=== PATIENT | female | born 1955 | race Two or more races ===

== ENCOUNTER 2023-06-25 09:10 | Outpatient (AMB) | payer MEDICARE, SELFPAY ==
--- NOTE | 2023-06-25 10:41 | AM.OFFWIN_ITS ---
Intake Vital Signs 06/25/23 10:47 Weight 86.183 kg BP 130/78 Blood Pressure Location Lt brachial Position Sitting Pulse 92 Pulse Source Pulse Oximeter Temp 98.8 F Temp Source Temporal Artery Scan Pulse Oximetry (%) 97 Oxygen Delivery Method Room Air Intake Visit Reasons: EP, head congestion, body ache [phone] Intake Note: Patient here for possible covid she was recently on a cruise and came back with sx and also tested twice at home which came back positive. Patient Tobacco Use Status: Never used Tobacco Allergies No Known Allergies Allergy (Verified 06/25/23 10:42) Do you need a note to return to daycare/school/sports/work: No HPI HPI Comments History of Present Illness Details 1055 68-year-old female presents fatigue, mal aise, myalgias, rhinorrhea, recently returned from a cruise on friday, reports she tested positive for COVID at home ( friday) , has been symptomatic since friday sore thorat, fatiigue, malise, myalgias, also has multiple sick contacts at home which are positive for COVID- 19. Patient denies chest pain, shortness of breath, nausea, vomiting, abdominal pain, headache, vision changes, dizziness, weakness. Physical exam benign History and physical exam concerning for viral illness but most likely COVID-19. Unlikely PE, pneumonia, ACS. No signs of acute respiratory distress. Plan will discharge home with supportive measures. Reviewed CDC guidelines. Educated patient on diagnosis and treatment plan, answered all question, patient verbalizes understanding. At this time patient will be discharged home, advised to return with new or worsening symptoms. Educated on worrisome signs and symptoms and when to return. At this time I feel comfortable discharge home. I did discuss Paxlovid with this patient, she is on day 4 of symptoms, explained her she can think about it and go to the pharmacy for it or ask her PCP about it. [facility] Social History Patient Tobacco Use Status: Never used Tobacco Review of Systems Const Details: Constitutional : No Weight loss, No Fever, No Chills, + Fatigue, + Malaise ENT/Mouth : No sore throat, No Rhinorrhea Eyes: No Eye Pain, No Swelling, No Redness Cardiovascular : No Chest Pain, No SOB, No Dyspnea on Exertion, No Orthopnea, No Edema, No Palpitations Respiratory : No Cough, No Sputum, No Wheezing Gastrointestinal : No Nausea, No Vomiting, No Diarrhea, No Constipation, No abdominal Pain, No Hematochezia, No Melena Genitourinary : No Dysuria, No Urinary Frequency, No Hematuria, Musculoskeletal : No joint pain, + Myalgias, No Joint Swelling Skin : No Skin Lesions, No rash Neuro : No Weakness, No Numbness, No Dizziness, No Headache Psych : No Anxiety/Panic, No Depression All other systems reviewed and are negative All systems reviewed & are unremarkable except as noted in HPI and below Physical Exam Vital Signs: Last Vital Signs Temp 98.8 F 06/25/23 10:47 Pulse 92 06/25/23 10:47 BP 130/78 06/25/23 10:47 Pulse Ox 97 06/25/23 10:47 Oxygen Delivery Method Room Air 06/25/23 10:47 vss Appearance: Alert.? Oriented X3.? No acute distress.? Head: Normocephalic, atraumatic, no step-offs or deformities Eyes: Pupils equal, round and reactive to light.? Neck: Normal inspection.? Neck supple.? CVS: Normal heart rate and rhythm.? Pulses normal.? Respiratory: No respiratory distress.? Breath sounds normal.? Abdomen: Soft and nontender.? Skin: Skin warm and dry.? Normal skin color.? Normal skin turgor.? Extremities: No lower extremity edema.? No calf ttp. 5/5 strength to bilateral upper and lower extremities Neuro: Oriented X 3.? No motor deficit.? No sensory deficit. CN 2-12 intact Assessment & Plan Assessment & Plan (1) COVID-19: Code(s): U07.1 - COVID-19 Plan Take your medications as prescribed. If you were prescribed antibiotics today, it is important that you take your medication to their entirety, do not skip any doses, do not finish them early. Today you tested positive for COVID-19. Take Ibuprofen or Tylenol as needed for fevers or body aches. Quarantine for 5 days and ensure you wear a mask. After 5 days you should wear a mask for 5 days after that. Practice social distancing and good hand hygiene. Drink plenty of fluids. Follow-up with your primary care provider this week. Return to the emergency department with new or worsening symptoms. In case of emergency call 911 You can purchase a pulse oximeter from your local pharmacy or grocery store, and monitor your oxygen saturation if it goes below 94% you should return to the emergency department for further evaluation. Orders: Orders BinaxNOW Covid-19 Ag Today B34.9 - Viral infection, unspecified Coding Level of Care Code Est Pt Level 3 (72055) Diagnoses COVID-19 U07.1
[2023-06-25 10:47] VITALS: BP 130/78; PULSE 92; TEMP 37.1; O2SAT 97
== END 2023-06-25 11:21 | disposition home or self-care (01) ==
PROVIDERS: Visit Provider Physician Assistant
DX: U07.1 COVID-19 (principal)
CPT/HCPCS: 99213

== ENCOUNTER 2025-08-11 13:47 | Outpatient (AMB) | payer MEDICARE, SELFPAY ==
--- NOTE | 2025-08-11 13:51 | MHC.PC.OV ---
Vital Signs 08/11/25 14:03 08/11/25 15:41 Height 5 ft 4.17 in Weight 196 lb BMI 33.5 BP 152/65 H 143/64 H Blood Pressure Location Rt brachial Position Sitting Respiration 12 Pulse 80 Pulse Source Pulse Oximeter Temp 98.1 F Temp Source Temporal Artery Scan Pulse Oximetry (%) 98 Oxygen Delivery Method Room Air Intake Visit Reasons: Establish Care/ Dr. Sinha Customer Service Assistant Required: No Accompanied by: Self / Same As Patient Allergies No Known Allergies Allergy (Verified 08/11/25 14:25) Medication List - Last Reconciled 08/11/25 by Patsy Babb PA-C cholecalciferol (vitamin D3) 50 mcg PO DAILY multivitamin 1 tab PO DAILY sb-tku-RJ-vit H-flsttw-mpikzhk 200 mcg-15 mcg- 5 mg-1 mg (PreserVision AREDS 2 Plus Multivit) caps PO Tobacco use date assessed: 08/11/25 Fall risk assessment: No Falls in past year Last assessed Fall Risk: 08/11/25 Dental Screening Dental Screen Date: 08/11/25 Did you have a dental visit in the last 12 months?: Yes Did you have a dental problem in the last 6 months where you did not have access to dental care?: No Was dental information given to patient?: Patient has dentist HPI HPI Comments History of Present Illness Details History of Present Illness The patient is a 70-year-old individual presenting for a new patient visit and physical. The patient has not seen a provider since 2020 and is concerned about monitoring blood pressure and cholesterol levels. The patient's medical history is significant for hyperlipidemia, hypothyroidism, osteopenia, and vitamin D deficiency. The patient reports a history of bilateral cataract surgery and takes PreserVision for eye health. Currently, the patient takes a multivitamin and vitamin D3 supplements. There is no family history of colon or breast cancer. Regarding health screenings, the patient's last colonoscopy was in 2011, and the last DEXA scan was in 2019. A mammogram was completed recently. The patient's 10 years ago, and a more recent partner in April of this year from stage 4 cancer. Social History - Tobacco Use: The patient denies ever smoking. - Functional Status: The patient is independent with all activities of daily living, drives, and does not use an assistive device such as a cane or walker. - Social Support: The patient's 10 years ago and a recent partner in April. - Family: The patient has three daughters and grandchildren. - Recent Falls: The patient denies any falls in the past year. [facility] Medical History (Updated 08/11/25 @ 15:40 by Patsy Babb PA-C) Healthcare maintenance Stage 1 hypertension Annual physical exam Heart murmur History of mammogram (~04/05/25) History of ectopic (~1984) Surgical History History of tonsillectomy and adenoidectomy (~1962) History of colonoscopy (~02/13/12) Family History Father Heart attack Mother Lung cancer Smoker Social History Housing: House Alcohol intake: current Alcohol intake frequency: holidays/special occasions only Patient Tobacco Use Status: Never used Tobacco service: No Current occupational status: retired Cognitive needs: No Hearing needs: No Vision needs: Yes (reading glasses) Questionnaire PHQ-9 Over the last 2 weeks, how often have you been bothered by any of the following problems? 1. Little interest or pleasure in doing things: not at all 2. Feeling down, depressed, or hopeless: not at all 3. Trouble falling or staying asleep, or sleeping too much: not at all 4. Feeling tired or having little energy: not at all 5. Poor appetite or overeating: not at all 6. Feeling bad about yourself - or that you are a failure or have let yourself or your family down: not at all 7. Trouble concentrating on things, such as reading the newspaper or watching television: not at all 8. Moving or speaking so slowly that other people could have noticed. Or the opposite - being so fidgety or restless that you have been moving around a lot more than usual: not at all 9. Thoughts that you would be better off or of hurting yourself in some way: not at all Total score: 0 Depression Screening Interpretation: Negative Depression Screening Done: Yes 53973 - PHQ-9 Billing: Yes Source: Developed by Drs. Ismael Cartwright, Sumi White, Baltazar Irizarry and colleagues, with an educational viraj from [employer]. Thrive Questionnaire Date Thrive assessed: 08/11/25 I am a: Patient What is your living situation today?: I have a steady place to live Within the past 12 months, did the food you bought not last and you didn't have the money to get more?: Never true Within the past 12 months, did you worry whether your food would run out before you got money to buy more?: Never true Do you have trouble paying for medicines?: No Do you have trouble getting transportation to medical appointments?: No Do you have trouble paying your heating and electricity bill?: No Do you have trouble taking care of your child, family member or friend?: No Do you have trouble with day-to-day activities such as bathing, preparing meals, shopping, managing finances, etc.?: No Are you currently unemployed and looking for a job?: No Are you interested in more education?: No Please select the resources that you would like help with: None THRIVE Score: 0 AUDIT C Alcohol Use Questionnaire (AUDIT-C) 1. How often do you have a drink containing alcohol?: Monthly or less 2. How many drinks containing alcohol do you have on a typical day when you are drinking?: 1 or 2 3. How often do you have six or more drinks on one occasion?: Never Total Score: 1 Score Reviewed/Action Taken: No ARETHA-7 AMB Questionnaire ARETHA-7 Date ARETHA - 7 assessed: 08/11/25 Feeling nervous, anxious, or on edge: 0 = Not at all Not being able to stop or control worryin = Not at all Worrying too much about different things: 0 = Not at all Trouble relaxin = Not at all Being so restless that it is hard to sit still: 0 = Not at all Becoming easily annoyed or irritable: 0 = Not at all Feeling afraid as if something awful might happen: 0 = Not at all Total ARETHA-7 score (0-4 normal; 5-9 mild; 10-14 moderate; 15-21 severe): 0 Source: Developed by Sumi Finley Kurt Kroenke and colleagues, with an educational viraj from [employer]. ARETHA-7 Assessment Billing ARETHA-7 Assessment Tool: ARETHA-7 Assessment 09824 Review of Systems Narrative Review of Systems - Constitutional: Denies recent falls. - Eyes: Denies any trouble seeing following cataract surgery. - Ears: Denies any trouble hearing. - Cardiovascular: Denies chest pain or shortness of breath. - Musculoskeletal: No pain reported on palpation during the abdominal exam. Const All systems reviewed & are unremarkable except as noted in HPI and below Physical exam (Primary Care) Vital Signs: Last Vital Signs Temp 98.1 F 08/11/25 14:03 Pulse 80 08/11/25 14:03 Resp 12 08/11/25 14:03 BP 152/65 H 08/11/25 14:03 Pulse Ox 98 08/11/25 14:03 Oxygen Delivery Method Room Air 08/11/25 14:03 Care Plan Goal for BP management: <140/90 patient will go home improve diet and exercise and return with blood pressure diary in 2 weeks BMI result Body Mass Index 33.5 BMI Assessment/Plan discussion: High BMI High, discussed plan: lifestyle, weight reduction, dietary, physical activity, alcohol moderation and other Tobacco/Smoking Status: Tobacco use Status Tobacco use date assessed 08/11/25 08/11/25 13:55 Patient Tobacco Use Status Never used Tobacco 08/11/25 14:14 PHQ-9: PHQ-9 Score PHQ-9: Total score 0 08/11/25 14:26 Depression Screening Interpretation: Negative Thrive Assessment: Date of Thrive Assessment Date Thrive assessed 08/11/25 08/11/25 13:55 Narrative Physical Exam Appearance: Alert. Oriented X3. No acute distress. Head: Normal external exam. Normocephalic. Atraumatic. Eyes: Pupils are equal, round, and reactive to light. Extraocular movements intact. Conjunctiva and sclera normal. Eyelids normal. Ears: External auditory canal normal. Tympanic membranes normal. Throat: Pharynx normal. Uvula midline. Moist mucous membranes. Neck: Normal inspection. Neck supple. Full range of motion. No adenopathy. Thyroid Normal. No meningeal signs. No neck mass noted. Cardiovascular: Normal heart rate and rhythm. Heart sound normal. Very light murmur noted. Pulses normal throughout. Respiratory: No respiratory distress. Painless inspiration. Breath sounds normal. No wheezes/rales/rhonchi noted. Chest nontender. No accessory muscle usage noted or decreased air movement noted. Abdomen: Soft and nontender. Bowel sounds normal in all 4 quadrants. No distention noted. No organomegaly noted. No visible injury noted. Back: No costovertebral angle tenderness. Full range of motion noted. Skin: Skin warm and dry. Normal skin color. Normal skin turgor. No rashes/lesions/lacerations noted. Extremities: No lower extremity edema. Extremities exhibit normal range of motion. Extremities nontender. Neuro: Oriented X 3. No motor deficit. No sensory deficit. Reflexes normal. Office Procedures Flu Questionnaire Does the patient have a severe egg allergy?: No Does the patient have severe life threatening allergies?: No Does the patient have a fever or illness today?: No Has the patient ever had Guillain-[place] Syndrome?: No Has the patient ever had any past reaction to a flu shot?: No Immunizations Fluarix [id number] (PF) 45 mcg (15 mcg x 3)/0.5 mL IM syringe Performing Provider: Patsy Babb PA-C Performing Location: [facility] [place] [facility] Documented (not given) by: MADINA Armendariz on 08/11/25 14:15 Reason Not Given: Patient Refused Results Reviewed Results Reviewed: Results - Colonoscopy: Last performed in 2011. - Mammogram: Recently performed. - DEXA scan: Last performed in 2019. Coding Level of Care Code New Pt Level 4 (21864) New Pt Prev Care >65yr (99782) Diagnoses Annual physical exam Z00.00 Stage 1 hypertension I10 Heart murmur R01.1 Healthcare maintenance Z00.00 Additional Codes ARETHA-7 Assessment Billing - ARETHA-7 Assessment Tool: ARETHA-7 Assessment 62055 ([id number]) PHQ-9 - 37173 - PHQ-9 Billing: Yes ([id number]) Time Spent (min) 60 Assessment & Plan Assessment & Plan (1) Annual physical exam: Code(s): Z00.00 - Encounter for general adult medical examination without abnormal findings Category: Medical (2) Stage 1 hypertension: Code(s): I10 - Essential (primary) hypertension Category: Medical Plan: The patient's blood pressure was 143/64 mmHg, which is consistent with stage 1 hypertension. The patient will monitor blood pressure at home once daily and record the readings for two weeks. The patient was counseled on improving diet and exercise to help lower blood pressure naturally before considering medication. A follow-up appointment is scheduled in two weeks to review the blood pressure log and determine if medication is necessary. (3) Heart murmur: Code(s): R01.1 - Cardiac murmur, unspecified Category: Medical Plan: A very light heart murmur was auscultated during the examination, which may be related to the patient's elevated blood pressure. An echocardiogram has been ordered to evaluate the heart valves for any regurgitation. If the echocardiogram shows significant findings, a referral to a trip rider will be made; otherwise, the plan is to manage blood pressure and monitor with annual ultrasounds. (4) Healthcare maintenance: Code(s): Z00.00 - Encounter for general adult medical examination without abnormal findings Category: Medical Plan: Comprehensive blood work has been ordered, including a CBC, CMP, ESR, CRP, lipid panel, thyroid function tests, vitamin B12, vitamin D, magnesium, and a urinalysis. A referral will be placed for a colonoscopy at [facility], as the last one was over 10 years ago. A referral for a DEXA scan will be placed for [place] to screen for osteoporosis, as the last scan was in 2019. Plan Plan Patient was informed and verbally consented to the use of an ambient scribe for clinic note documentation during this visit. 1. Stage 1 Hypertension The patient's blood pressure was 143/64 mmHg, which is consistent with stage 1 hypertension. The patient will monitor blood pressure at home once daily and record the readings for two weeks. The patient was counseled on improving diet and exercise to help lower blood pressure naturally before considering medication. A follow-up appointment is scheduled in two weeks to review the blood pressure log and determine if medication is necessary. 2. Heart Murmur A very light heart murmur was auscultated during the examination, which may be related to the patient's elevated blood pressure. An echocardiogram has been ordered to evaluate the heart valves for any regurgitation. If the echocardiogram shows significant findings, a referral to a trip rider will be made; otherwise, the plan is to manage blood pressure and monitor with annual ultrasounds. 3. Health Maintenance Comprehensive blood work has been ordered, including a CBC, CMP, ESR, CRP, lipid panel, thyroid function tests, vitamin B12, vitamin D, magnesium, and a urinalysis. A referral will be placed for a colonoscopy at [facility], as the last one was over 10 years ago. A referral for a DEXA scan will be placed for [place] to screen for osteoporosis, as the last scan was in 2019. Discussion Notes I discussed the patient's blood pressure reading of 143/64 mmHg, classifying it as stage 1 hypertension. I explained that instead of immediately starting medication, I would prefer for the patient to monitor blood pressure at home for two weeks, along with implementing diet and exercise changes. We will reassess the need for medication at a two-week follow-up. I informed the patient that I detected a very light heart murmur, which could be from a valve allowing a small amount of blood backflow and might be contributing to the elevated blood pressure. To investigate this, I have ordered an echocardiogram. I explained that if the results are significant, a cardiology referral will be made, but if it is minor, we will manage blood pressure and monitor with yearly ultrasounds. I reviewed the plan for health maintenance screenings, including a referral for a colonoscopy, as the patient is overdue, and a referral for a DEXA scan. I also ordered a comprehensive set of fasting labs. I explained that the respective facilities will contact the patient to schedule these appointments. Orders: Orders Influenza [id number] Immunization Today Z23 - Encounter for immunization Magnesium Today Z00.00 - Encounter for general adult medical examination without abnormal findings Vitamin B12 and Folate Today Z00.00 - Encounter for general adult medical examination without abnormal findings Vitamin D 25-OH Total Today Z00.00 - Encounter for general adult medical examination without abnormal findings UA CC w/rflx Micro + Cult Today Z00.00 - Encounter for general adult medical examination without abnormal findings Lipid Panel Today Z00.00 - Encounter for general adult medical examination without abnormal findings Hemoglobin A1c Today Z00.00 - Encounter for general adult medical examination without abnormal findings C Reactive Protein Today Z00.00 - Encounter for general adult medical examination without abnormal findings Comprehensive [place]. Panel Fast Today Z00.00 - Encounter for general adult medical examination without abnormal findings Complete Blood Count Auto Diff Today Z00.00 - Encounter for general adult medical examination without abnormal findings Erythrocyte Sedimentation Rate Today Z00.00 - Encounter for general adult medical examination without abnormal findings TSH reflex Free T4 Today Z00.00 - Encounter for general adult medical examination without abnormal findings XR DEXA axial skeleton Today M81.0 - Age-related osteoporosis without current pathological fracture CA echo transthoracic complete Today R01.1 - Cardiac murmur, unspecified Referrals Gastroenterology Referral Z12.11 - Encounter for screening for malignant neoplasm of colon Medications: New hz-aap-LS-vit T-dbuics-ygmuxft 200 mcg-15 mcg- 5 mg-1 mg (PreserVision AREDS 2 Plus Multivit) caps PO cholecalciferol (vitamin D3) 50 mcg PO DAILY multivitamin 1 tab PO DAILY Patient Instructions: Patient Instructions - Check your blood pressure once a day and write down the date, time, and reading for the next two weeks. - When checking your blood pressure, sit with your legs uncrossed on the ground, your arm at heart level, and do not talk during the reading. - Try to improve your diet and exercise to help lower your blood pressure naturally. - Go to a lab to have your blood drawn. - You must fast (nothing to eat or drink except water or black coffee) for at least 10 hours before your blood test. - The hospital or specialist's office will call you to schedule your heart ultrasound, colonoscopy, and bone density scan (DEXA). - You have a follow-up appointment in two weeks to review your blood pressure log.
[2025-08-11 14:03] VITALS: BP 152/65; PULSE 80; RESP 12; TEMP 36.7; O2SAT 98; BMI 33.5
[2025-08-11 15:41] VITALS: BP 143/64
== END 2025-08-11 14:44 | disposition home or self-care (01) ==
LOC: HO.HMCSH 13:48
PROVIDERS: PCP Physician Assistant Medical; Visit Provider Physician Assistant Medical
DX: I10 Essential (primary) hypertension (principal); R01.1 Cardiac murmur, unspecified; Z23 Encounter for immunization

== ENCOUNTER → 2025-08-11 13:47 | Outpatient (BNVA) | payer MEDICARE, SELFPAY | PROVIDERS: PCP Physician Assistant Medical; Visit Provider Physician Assistant Medical | DX: Z00.00 Encounter for general adult medical examination without abnormal findings (principal); I10 Essential (primary) hypertension; R01.1 Cardiac murmur, unspecified; Z13.31 Encounter for screening for depression; Z13.39 Encounter for screening examination for other mental health and behavioral disorders | CPT/HCPCS: 96127; 99202 ==

== ENCOUNTER 2025-08-23 07:38 | Outpatient (REF) | payer MEDICARE, SELFPAY ==
[2025-08-23 10:05] LABS: MANUAL DIFF FLAG NO
[2025-08-23 10:11] LABS: Appearance Urine Turbid; Glucose Urine UA Negative (Negative); PH 5.0 (5.0-9.0); Specific Gravity - Urine 1.025 (1.005-1.025); UMIC TRIGGER UACC YES
[2025-08-23 10:16] LABS: UACC Culture Trigger YES
[2025-08-23 10:23] LABS: Hematocrit 42.4 % (37.0-47.0); Hemoglobin 13.9 g/dl (12.0-16.0); Imm Gran Abs Auto 0.02 X10*3/uL (0.00-0.03); Imm Gran Pct Auto 0.3 % (0.0-0.4); Lymphocytes Absolute Auto 2.0 X10*3/uL (1.2-4.9); Mean Corpuscular HGB Conc 32.8 g/dl (31.0-35.0); Mean Corpuscular Hemoglobin 29.5 pg (27.0-33.0); Mean Corpuscular Volume 90.0 fL (80.0-98.0); NRBC Abs Auto 0.000 X10*3/uL (0.0-0.012); NRBC Pct Auto 0.0 /100WBC (0.0-0.2); Platelet Count 256 X10*3/uL (160-400); Red Blood Count 4.71 X10*6/uL (4.20-5.50); White Blood Count 7.9 X10*3/uL (4.8-10.8)
[2025-08-23 10:41] LABS: Alanine Aminotransferase 24 U/L (0-31); Albumin Level 4.3 g/dL (3.5-5.0); Alkaline Phosphatase 76 U/L (39-117); Anion Gap 11 (12-20); Aspartate Amino Transferase 25 U/L (5-31); Blood Urea Nitrogen 16 mg/dL (9-16); Calcium 8.8 mg/dL (8.4-10.2); Carbon Dioxide 26 mmol/L (22-29); Chloride 108 mmol/L (96-108); Cholesterol 233 mg/dL (<200); Estimated Glomerular Filt Rate > 60; HDL Cholesterol 49 mg/dL (>40); Magnesium 1.9 mg/dL (1.6-2.6); Potassium 3.9 mmol/L (3.3-5.1); Sodium 141 mmol/L (135-145); Total Protein 7.2 g/dL (6.5-8.0); Triglycerides 120 mg/dL (<150)
[2025-08-23 11:11] LABS: Folate 13.8 ng/mL (> or = 4.0); Vitamin B12 504 pg/mL (200-900)
== END 2025-08-23 07:39 | disposition home or self-care (01) ==
LOC: HO.HMGCLDS 07:38
PROVIDERS: PCP Physician Assistant Medical; Visit Provider Physician Assistant Medical
DX: Z00.00 Encounter for general adult medical examination without abnormal findings (principal); Z13.6 Encounter for screening for cardiovascular disorders; Z13.0 Encounter for screening for diseases of the blood and blood-forming organs and certain disorders involving the immune mechanism; Z13.29 Encounter for screening for other suspected endocrine disorder; Z13.1 Encounter for screening for diabetes mellitus; Z13.21 Encounter for screening for nutritional disorder
CPT/HCPCS: 36415; 80053; 80061; 81001; 82306; 82607; 82746; 83036; 83735; 84443; 85025; 85652; 86140; 87086

== ENCOUNTER → 2025-08-25 14:42 | Outpatient (BNVA) | payer MEDICARE, SELFPAY | PROVIDERS: PCP Physician Assistant Medical | DX: I10 Essential (primary) hypertension (principal) | CPT/HCPCS: 99211 ==

== ENCOUNTER 2025-09-12 10:51 | Outpatient (REF) | payer MEDICARE, SELFPAY ==
--- NOTE | ~2025-09-12 | MM_ITS ---
EXAMINATION: DXA BONE DENSITY AXIAL HISTORY: M81.0 - Age-related osteoporosis without current pathological fracture TECHNIQUE: Impact Driven Dual energy absorptiometry (DEXA) of the lumbar spine, total left hip, and femoral neck was performed. COMPARISON: There are no prior studies for comparison. FINDINGS: The bone mineral density of the lumbar spine is 1.054 g/cm2, corresponding to a T-score of -1.1, and a Z-score of -0.1. This is indicative of osteopenia. The bone mineral density of the left total hip is 1.078 g/cm2, corresponding to a T-score of 0.6, and a Z-score of 1.6. This is indicative of normal bone mineral density. The bone mineral density of the left femoral neck is 0.970 g/cm2, corresponding to a T-score of -0.5, and a Z-score of 0.8. This is indicative of normal bone mineral density. FRACTURE RISK: The FRAX index suggests a risk of major osteoporotic fracture of 7.9%, and of hip fracture 0.7%. MM/XR DEXA axial skeleton IMPRESSION: Based on bone mineral density, and according to World Health Organization (WHO) criteria, the diagnosis is consistent with osteopenia. Statistically, 68% of repeat scans fall within 1 SD (+/- 0.010 g/cm2 for AP spine L1-L4) and 1 SD (+/- 0.012 g/cm2 for femur total) FRAX is a trademark of the [employer] [place] for Metabolic Bone Disease, a World Health Organization (WHO) Collaborating Center. Electronically signed by: Ismael Daniels MD 09/12/2025 11:56 AM [facility]
== END 2025-09-12 10:52 | disposition home or self-care (01) ==
LOC: HO.MAMMO 10:51
PROVIDERS: PCP Physician Assistant Medical; Visit Provider Physician Assistant Medical
DX: M81.0 Age-related osteoporosis without current pathological fracture (principal)
CPT/HCPCS: 77080

== ENCOUNTER → 2025-09-12 11:15 | Outpatient (BNV) | payer MEDICARE, SELFPAY | PROVIDERS: PCP Physician Assistant Medical; Visit Provider Radiology Diagnostic Radiology | DX: E28.39 Other primary ovarian failure (principal) | CPT/HCPCS: 77080 ==